=== PATIENT | male | born 1985 | race Two or more races ===

== ENCOUNTER 2024-02-09 20:15 | Emergency (ER) | payer OTHER ==
[~2024-02-09] VITALS: Ht 180.3 cm; Wt 86.2 kg
[2024-02-09] MEDS ORDERED: CEFTRIAXONE SODIUM 2,000 MG VIAL IM STA (23:16)
[2024-02-09] MEDS ORDERED: HYDROCODONE/CHLORPHEN P-STIREX 5 ML ML PO STA (23:16)
== END 2024-02-10 00:19 | disposition home or self-care (01) ==
LOC: ER 20:17
DX: J06.9 Acute upper respiratory infection, unspecified (principal); J00 Acute nasopharyngitis [common cold]